=== PATIENT | female | born 1990 ===

== ENCOUNTER 2024-08-31 03:09 | Emergency (ER) | payer BC, OTHER ==
[~2024-08-31] VITALS: Ht 170.2 cm; Wt 140.0 kg
[2024-08-31] MEDS ORDERED: ACET500T58 PO (04:15)
--- NOTE | 2024-08-31 04:16 | ED.PDOC ---
Musculoskeletal HPI Comments 34-YEAR-OLD FEMALE PRESENTS TO ER WITH COMPLAINTS OF LEFT FOOT PAIN X 1.5 MONTHS. PATIENT REPORTS THAT SHE HAS BEEN EXPERIENCING PAIN/SWELLING LOCALIZED TO THE LATERAL ASPECT OF LEFT FOOT X 1.5 MONTHS. DENIES ANY TRAUMA/FALLS/INJURY. SHE RATES HER CURRENT PAIN 08/31 TO LATERAL ASPECT OF LEFT FOOT WITHOUT RADIATION. DENIES USE OF MEDICATIONS FOR CURRENT SYMPTOMS AND PRESENTS TO ER AMBULATORY ON ARRIVAL, WITH STEADY GAIT, IN NO DISTRESS. 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: No 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 History Family History Family History: Unknown Social History Smoker: Non-Smoker Alcohol: Occasionally Drugs: Marijuana Lives In: Home Constitutional: denies: chills, diaphoresis, fatigue, fever, malaise, sweats, weakness, others EENTM: denies: blurred vision, double vision, ear bleeding, ear discharge, ear drainage, ear pain, ear ringing, eye pain, eye redness, hearing loss, mouth pain, mouth swelling, nasal discharge, nose bleeding, nose congestion, nose pain, photophobia, tearing, throat pain, throat swelling, voice changes, others Respiratory: denies: cough, hemoptysis, orthopnea, SOB at rest, shortness of breath, SOB with excertion, stridor, wheezing, others Cardiovascular: denies: chest pain, dizzy spells, diaphoresis, Dyspnea on exertion, edema, irregular heart beat, left arm pain, lightheadedness, palpitations, PND, syncope, others Gastrointestinal: denies: abdomen distended, abdominal pain, blood streaked bowels, constipated, diarrhea, dysphagia, difficulty swallowing, hematemesis, melena, nausea, poor appetite, poor fluid intake, rectal bleeding, rectal pain, vomiting, others Genitourinary: denies: abnormal vagina bleeding, burning, dyspareunia, dysuria, flank pain, frequency, hematuria, incontinence, pain, , vagina discharge, urgency, others Neurological: denies: dizziness, fainting, headache, left sided numbness, left sided weakness, numbness, paresthesia, pre-existing deficit, right sided numbness, right sided weakness, seizure, speech problems, tingling, tremors, weakness, others Musculoskeletal: reports: others ( STATED IN HPI) Integumetry: reports: others ( STATED IN HPI) Allergic/Immunocompromised: denies: Difficulty Healing, Frequent Infections, Hives, Itching, others Hematologic/Lymphatic: denies: anemia, blood clots, easy bleeding, easy bruising, swollen glands, others Endocrine: denies: excessive hunger, excessive sweating, excessive thirst, excessive urination, flushing, intolerance to cold, intolerance to heat, unexplained weight gain, unexplained weight loss, others Psychiatric: denies: anxiety, bipolar disorder, depression, hopeless, panic disorder, schizophrenia, sleepless, suicidal, others Physical Exam General Appearance: No Apparent Distress HEENT: PERRL/EOMI Neck: Full Range of Motion, Non-Tender, Normal Respiratory: Chest Non-Tender, Lungs Clear, No Accessory Muscle Use, No Respiratory Distress, Normal Breath Sounds Cardiovascular: No Murmur, No Gallop, Regular Rate/Rhythm Breast Exam: Deferred Gastrointestinal: NOT DONE Genitalia: Deferred Pelvic: Deferred Rectal: Deferred Extremities: Normal capillary refill, Normal range of motion Musculoskeletal : Extremity Location: Foot (TTP/MILD SWELLING NOTED TO LATERAL ASPECT OF LEFT FOOT. NO OTHER TTP TO LEFT FOOT NOTED. NO TTP TO LEFT ANKLE NOTED. NO FURTHER SKIN CHANGES NOTED. PULSES INTACT) Neurologic: Alert, can dryer II-XII nml as Tested, No Motor Deficits, Normal Affect, Normal Mood, No Sensory Deficits Cerebellar Function: Normal Reflexes: Normal Skin: Dry, Normal Color, Warm Peripheral Pulses: 2+ dorsalis pedis (R), 2+ dorsalis pedis (L) Lymphatic: No Adenopathy Was a procedure done? Was a procedure done?: No Sedation Sedation?: No Differential Diagnosis EXT Differential Diagnosis: Cellulitis, Fracture, Dislocation, Neurovascular injury X-Ray, Labs, Meds, VS Vital Signs Date Time Temp Pulse Resp B/P (MAP) Pulse Ox O2 Delivery O2 Flow Rate FiO2 08/31/24 04:23 98.1 72 20 125/71 (89) 97 98.1 08/31/24 04:23 Room Air* 0 21 08/31/24 03:09 98.1 72 20 125/71 (89) 97 98.1 PATIENT: GAB ROUSECCT: [id number] UNIT: [id number] : 1990 LOC: ER ROOM / BED: / AGE / SEX: 34 / F ADM STATUS: REG ER SERVICE 7 ORDERING PHYSICIAN: TINO MONTGOMERY PROCEDURE(s): LFOOT - L FOOT 3 VIEW XRAY REASON: LEFT FOOT PAIN ORDER NUMBER(s): [id number], ACCESSION NUMBER(s): [id number] EXAM: XY L FOOT 3 VIEW XRAY HISTORY: LEFT FOOT PAIN COMPARISON: None TECHNIQUE: Three views of the left foot were performed. FINDINGS: No acute fracture or dislocation are identified about the left foot. No significant degenerative changes. Os trigonum is incidentally noted. 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 There may be soft tissue swelling of the midfoot dorsally and medially. IMPRESSION: No acute fracture of the left foot. ATED BY: PEDRO LEIGH MD DICTATED DATE/TIME: 08/31/24434 SIGNED BY: PEDRO LEIGH MD SIGNED DATE/TIME: 08/31/24434 CC: LEFT FOOT X-RAY REVIEWED PATIENT NEUROVASCULARLY INTACT ADVISED ON ELEVATION AND ALTERNATE ICE ON/OFF NEEDED FOR PAIN/SWELLING ADVISED TO FOLLOW UP WITH PCP AND PODIATRY IN 1-2 DAYS PATIENT VERBALIZED UNDERSTANDING AND AGREEABLE WITH CURRENT PLAN OF CARE ADVISED TO RETURN TO ER IMMEDIATELY IF SYMPTOMS WORSEN Images Reviewed?: Images reviewed and evaluated by me Time of 1ST Reevaluation: 03:54 Reevaluation 1ST: N/A Patient Education/Counseling: Diagnosis, Treatment, Prognosis, Need For Follow Up Family Education/Counseling: No Family Present Departure 1 Departure Time of Disposition: 04:12 Impression: Primary Impression: Sprain of foot, left Qualified Codes: S93.602A - Unspecified sprain of left foot, initial encounter Disposition: HOME / SELF CARE / HOMELESS Condition: Stable e-Prescriptions Acetaminophen (Acetaminophen) 500 Mg Tab 500 MG PO Q4HPRN, #30 TAB 0 Refills Prov: TINO MONTGOMERY 08/31/24 Discharged With: Self Critical Care Note Critical Care Time?: No Stability Stability form required: No Heart Score Heart Score: Heart Score Response (Comments) Value History N/A 0 EKG N/A 0 Age N/A 0 Risk Factors N/A 0 Troponin N/A 0 Total 0 TINO MONTGOMERY Aug 31, 2024 04:16
[2024-08-31 04:23] VITALS: BP 125/71; PULSE 72; RESP 20; TEMP 98.1; O2SAT 97
--- NOTE | 2024-08-31 04:37 | DVH ---
EXAM: XY L FOOT 3 VIEW XRAY HISTORY: LEFT FOOT PAIN COMPARISON: None TECHNIQUE: Three views of the left foot were performed. FINDINGS: No acute fracture or dislocation are identified about the left foot. No significant degenerative mahmood ges. Os trigonum is incidentally noted. 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 There may be soft tissue swelling of the midfoot dorsally and medially. IMPRESSION: No acute fracture of the left foot.
== END 2024-08-31 04:45 | disposition home or self-care (01) ==
LOC: ER 03:09
DX: S93.602A Unspecified sprain of left foot, initial encounter (principal); F12.90 Cannabis use, unspecified, uncomplicated; Z90.49 Acquired absence of other specified parts of digestive tract; Z79.899 Other long term (current) drug therapy; X58.XXXA Exposure to other specified factors, initial encounter; Y93.89 Activity, other specified; Y92.89 Other specified places as the place of occurrence of the external cause; Y99.8 Other external cause status
CPT/HCPCS: 73630